=== PATIENT | male | born 1970 | race Caucasian/White ===

== ENCOUNTER 2023-07-30 11:17 | Emergency (ER) | payer OTHER, SELFPAY ==
[2023-07-30 11:23] VITALS: BP 141/82; PULSE 77; RESP 18; TEMP 36.3; O2SAT 97; BMI 35.4
--- NOTE | 2023-07-30 13:52 | ED.ABDPAIN ---
HPI - Abdominal Pain General Time Seen by Provider: 13:53 Date Seen: 07/30/23 Chief Complaint: Abdominal Pain Stated Complaint: L side pain Time Seen by Provider: 07/30/23 13:29 Source: patient and RN notes reviewed Mode of arrival: ambulatory Limitations: no limitations History of Present Illness HPI narrative: Patient is a 52-year-old male coming in with left lower quadrant abdominal pain that started on Thursday and has gotten progressively worse since then. He has not had any fevers or chills, no night sweats. He denies any nausea or vomiting, no change in appetite. He has had absolutely no change in stools, no urinary symptoms. He is not aware of anybody in the family with a history of kidney stones, himself has not had kidney stones nor any history of diverticulitis. Related Data Home Medications Medication Instructions Recorded Confirmed No Known Home Medications 07/30/23 07/30/23 Allergies Allergy/AdvReac Type Severity Reaction Status Date / Time No Known Drug Allergies Allergy Verified 07/30/23 14:48 Review of Systems Status of ROS Reports: 6 or more systems reviewed and unremarkable except as noted in History and below PFSH PFS Social History Smoking Status: Never smoker Do you use any of these nicotine containing products: None Second hand tobacco smoke exposure: No How often do you have a drink containing alcohol: never How often do you have six or more drinks on one occasion: Never AUDIT-C Alcohol total score: 0 Non-prescribed substance use: denies use service: No Exam Const: Vital Signs, click to edit/add: Vital Signs - 24 hr 07/30/23 11:23 Temperature 97.4 F L Pulse Rate [Pulse Oximeter] 77 Respiratory Rate 18 Blood Pressure [Ri ght Upper Arm] 141/82 H Pulse Oximetry 97 Oxygen Delivery Me thod Room Air This 52-year-old male is seen in exam room for coming sitting up in the chair, looks alert, interactive, no apparent distress. Pupils equal round reactive, sclera clear. Symmetrical facial function. Speech is normal. Neck is supple, no cervical adenopathy, no thyromegaly masses or nodules. Lungs are clear, good air entry, no wheezing or crackles, no tachypnea. CV regular rate and rhythm, no murmur, normal S1-S2, no S3 or S4. Abdomen is mildly obese but soft, does not seem distended, has mid to left lower quadrant tenderness without any rebound or guarding, do not appreciate any masses at this point. Was ambulatory into the ED of his own accord. Documenting provider has reviewed patient's vital signs: yes Course Course ED Course: Reviewed with patient that I do think we need to proceed with CT imaging. My initial thought is that this certainly could be diverticulitis. Urinary pathology is also a possibility. Other intra-abdominal issues certainly will be looked at with the labs and the CT imaging. He currently denies any need for any nausea medicine or any pain management. He will let us know if anything is worsening. We will collect a full complement of labs and he will have a CT of his abdomen pelvis with IV contrast. Reevaluation(s) Time of Reevaluation #1: 14:22 Reevaluation #1: Patient had a significant vasovagal episode with IV placement, I did see him after this happened, he was alert, talkative did look paler than when I had seen him earlier. Did have some nausea. IV did get placed, we will give him 500 mL normal saline, 4 mg IV Zofran. Nursing staff is in the process of taking his vital signs. Will continue to monitor him a bit closer at this time but presume that this was vasovagal as symptoms happened with his IV start. 2:42pm checked back on patient. He is alert interactive, no concerns. States he really had no idea that he was going to pass out. Recollects everything before in after. This happened in context of his IV being placed. He will be going to get his CT done now. Awaiting lab results. Time of Reevaluation #2: 16:11 Reevaluation #2: Have reviewed with patient that his CT showing epiploic appendagitis. Did review this condition. Thankfully, does not require surgery, no antibiotics, should resolve on its own with just conservative management and treatment with [id number]. We discussed that NSAIDs may be more beneficial. Vital Signs Vital signs: Initial Vital Signs Temperature 97.4 F L 07/30/23 11:23 Temperature Source Temporal Artery Scan 07/30/23 11:23 Pulse Rate 77 07/30/23 11:23 Respiratory Rate 18 07/30/23 11:23 Blood Pressure 141/82 H 07/30/23 11:23 Blood Pressure Mean 101 07/30/23 11:23 Blood Pressure Position Sitting 07/30/23 11:23 Pulse Oximetry 97 07/30/23 11:23 Oxygen Delivery Method Room Air 07/30/23 11:23 Vital Signs Temperature 97.4 F L 07/30/23 11:23 Pulse Rate 77 07/30/23 11:23 Respiratory Rate 18 07/30/23 11:23 Blood Pressure 141/82 H 07/30/23 11:23 Pulse Oximetry 97 07/30/23 11:23 Oxygen Delivery Method Room Air 07/30/23 11:23 Temperature 97.4 F L 07/30/23 11:23 Pulse Rate 77 07/30/23 11:23 Respiratory Rate 18 07/30/23 11:23 Blood Pressure 141/82 H 07/30/23 11:23 Pulse Oximetry 97 07/30/23 11:23 Oxygen Delivery Method Room Air 07/30/23 11:23 Medications Administered Medications: Discontinued Medications Generic Name Dose Route Start Last Admin Trade Name Freq PRN Reason Stop Dose Admin Sodium Chloride 500 mls @ 500 mls/hr 07/30/23 14:22 07/30/23 15:34 0.9 % Sodium Chloride 500 Ml IV 07/30/23 15:21 Infused .Q1H ONE Infusion Ondansetron HCl 4 mg 07/30/23 14:22 07/30/23 14:24 Ondansetron 2 Mg/Ml Inj IVP 07/30/23 14:23 4 mg ONCE ONE Administration MDM - Abdominal Pain Lab Data Attestation: I reviewed the patient's lab results. Labs: Lab Results 07/30/23 Range/Units 14:27 WBC 7.83 (4.50-11.00) K/uL RBC 5.31 (4.30-5.90) m/uL Hgb 16.7 (13.5-17.5) gm/dL Hct 48.5 (37.0-53.0) % MCV 91 (80-100) fL MCH 32 (26-34) pg MCHC 34 (32-36) gm/dL RDW Coeff of Freida 12.2 (11.5-15.5) % Plt Count 193 (140-440) K/uL Neut % (Auto) 65.3 (42.0-72.0) % Lymph % (Auto) 24.1 (20-44) % Dodge % (Auto) 7.0 (0.0-11.0) % Eos % (Auto) 2.8 (0.0-7.0) % Baso % (Auto) 0.5 (0.0-3.0) % Neut # (Auto) 5.11 (1.7-7.0) K/uL Lymph # (Auto) 1.89 (0.90-2.90) K/uL Dodge # (Auto) 0.50 (0.00-0.90) K/UL Eos # (Auto) 0.22 (0.00-0.50) K/uL Baso # (Auto) 0.04 (0.00-0.30) K/uL Abs Immat Gran (auto) 0.02 (0.00-0.30) K/uL Imm/Tot Granulo (auto) 0.3 % Sodium 138 (135-149) mmol/L Potassium 4.2 (3.6-5.1) mmol/L Chloride 107 (96-114) mmol/L Carbon Dioxide 22 (20-32) mmol/L Anion Gap 9 (7-15) mEq/L BUN 21 (7-30) mg/dL Creatinine 0.9 (0.5-1.5) mg/dL Estimated Creat Clear 99.94 Estimated GFR 101 ml/min Glucose 90 (60-115) mg/dL Lactate 0.9 (0.5-1.9) mmol/L Calcium 9.1 (8.4-10.6) mg/dL Total Bilirubin 0.7 (0.1-1.5) mg/dL AST 34 (12-35) U/L ALT 45 (4-50) U/L Alkaline Phosphatase 75 (40-150) U/L C-Reactive Protein 0.7 (0.5-1.0) mg/dL Total Protein 8.1 (6.0-8.3) g/dL Albumin 4.9 (3.3-5.0) g/dL Imaging Data CT scan - abdomen: Attestation: I have reviewed the pertinent imaging results. Radiologist's impression: Patient: [facility] Facility:?[facility] Patient ID:?[id number] Site Patient ID:?[id number]. Site :?[id number] Study:?CT Abdomen/Pelvis w/ 124cc [id number] 2:54:15 PM Ordering Physician:Brian Rodriguez Final Report: INDICATION: Left lower quadrant abdominal pain. TECHNIQUE: CT abdomen and pelvis acquired without and with 124 cc Isovue 370 IV contrast. COMPARISON: None. FINDINGS: There is acute inflammation of epiploic appendage adjacent to the proximal sigmoid colon seen for example on series 2, image 118. GI tract otherwise unremarkable. The liver is normal in size, shape and attenuation. Unremarkable gallbladder. No biliary dilatation. The spleen, adrenal glands and pancreas are within normal limits. The kidneys are unremarkable. Pelvic organs are unremarkable. No lymphadenopathy evident. No free air or significant free fluid. The lung bases are clear. IMPRESSION: Acute epiploic appendagitis adjacent to the proximal sigmoid colon would explain the patient`s left lower quadrant pain. GI tract and remainder of the exam otherwise unremarkable. Please note that all CT scans at this facility use dose modulation, iterative reconstruction, and/or weight-based dosing when appropriate to reduce radiation dose to as low as reasonably achievable. Dictated by Yunier Roy MD @ 07/30/2023 3:24:44 PM (Electronic Signature) Critical Care Time Critical Care Time Critical Care Time: No Discharge Plan Discharge Clinical Impression: Epiploic appendagitis Patient Disposition: Home, Self-Care Condition: Stable Instructions: Epiploic Appendagitis (ED) Additional Instructions: Recommend ibuprofen, follow bottle directions baseline for pain management. Can supplement with Tylenol per bottle directions if you need additional pain control. This should be a self-limited condition. If you are having increasing abdominal pain, fever or vomiting with it, do recommend re-evaluation. Otherwise, you can proceed with activity and diet as tolerated. Activity Level: Activity as Tolerated Prescriptions: No Action No Known Home Medications Follow Up/Referrals: Provider,Not a Local [Primary Care Provider] - Stand Alone Forms: [employer] Info Instructions
--- NOTE | 2023-07-30 13:59 | CRLHL7_ITS ---
For Patients: As a result of the Century Cures Act, medical imaging exams and procedure reports are released immediately into your electronic medical record. You may view this report before your referring provider. If you have questions, please contact your health care provider. INDICATION: Left lower quadrant abdominal pain. TECHNIQUE: CT abdomen and pelvis acquired without and with 124 cc Isovue 370 IV contrast. COMPARISON: None. FINDINGS: There is acute inflammation of epiploic appendage adjacent to the proximal sigmoid colon seen for example on series 2, image 118. GI tract otherwise unremarkable. The liver is normal in size, shape and attenuation. Unremarkable gallbladder. No biliary dilatation. The spleen, adrenal glands and pancreas are within normal limits. The kidneys are unremarkable. Pelvic organs are unremarkable. No lymphadenopathy evident. No free air or significant free fluid. The lung bases are clear. IMPRESSION: Acute epiploic appendagitis adjacent to the proximal sigmoid colon would explain the patient`s left lower quadrant pain. GI tract and remainder of the exam otherwise unremarkable. Please note that all CT scans at this facility use dose modulation, iterative reconstruction, and/or weight-based dosing when appropriate to reduce radiation dose to as low as reasonably achievable. Dictated by Yunier oRy MD @ 07/30/2023 3:24:44 PM (Electronically Signed)
[2023-07-30] MEDS: ONDANSETRON 2 MG/ML inj 4 MG IVP (14:24)
[2023-07-30] MEDS: 0.9 % SODIUM CHLORIDE 500 ML 500 ML IV (14:24)
[2023-07-30 14:39] LABS: Basophils Absolute Auto 0.04 K/uL (0.00-0.30); Basophils Percent Auto 0.5 % (0.0-3.0); Eosinophils Absolute Auto 0.22 K/uL (0.00-0.50); Eosinophils Percent Auto 2.8 % (0.0-7.0); Hematocrit 48.5 % (37.0-53.0); Hemoglobin* 16.7 gm/dL (13.5-17.5); Immature Granulocytes Abs Auto 0.02 K/uL (0.00-0.30); Immature Granulocytes Pct Auto 0.3 %; Lymphocytes Absolute Auto 1.89 K/uL (0.90-2.90); Lymphocytes Percent Auto 24.1 % (20-44); Mean Corpuscular HGB Conc 34 gm/dL (32-36); Mean Corpuscular Hemoglobin 32 pg (26-34); Mean Corpuscular Volume 91 fL (80-100); Neutrophils Absolute Auto 5.11 K/uL (1.7-7.0); Neutrophils Percent Auto 65.3 % (42.0-72.0); Platelet Count* 193 K/uL (140-440); RDW Coefficient of Variation % 12.2 % (11.5-15.5); Red Blood Count 5.31 m/uL (4.30-5.90); White Blood Count* 7.83 K/uL (4.50-11.00)
[2023-07-30 14:40] LABS: Lactate* 0.9 mmol/L (0.5-1.9)
[2023-07-30 14:43] LABS: Slide Review Reflex No
--- NOTE | 2023-07-30 14:45 | ED.NURSE ---
This ghost writer was placing IV in patient's right AC when patient had sudden onset of diaphoresis and unconsciousness. Staff alert button hit for assistance. Pt began to gag while still unconsciousness. Additional staff assisted with getting patient laid back in exam room chair and notifying provider. Dr. Pineda entered room and assessed pt. Orders for IV fluids and IV zofran placed. After approximately 90 seconds, pt was awake and answering questions. He did not recall fainting. VS stable. Medications given as ordered. Pt awake and alert upon exit of room.
[2023-07-30 15:28] LABS: Albumin* 4.9 g/dL (3.3-5.0); Chloride* 107 mmol/L (96-114); Sodium* 138 mmol/L (135-149)
[2023-07-30 15:29] LABS: Potassium* 4.2 mmol/L (3.6-5.1)
[2023-07-30 15:31] LABS: Alanine Aminotransferase* 45 U/L (4-50); Alkaline Phosphatase* 75 U/L (40-150); Anion Gap 9 mEq/L (7-15); Aspartate Amino Transferase* 34 U/L (12-35); Bilirubin Total* 0.7 mg/dL (0.1-1.5); Blood Urea Nitrogen* 21 mg/dL (7-30); Carbon Dioxide* 22 mmol/L (20-32); Creatinine* 0.9 mg/dL (0.5-1.5); Est. Creatinine Clearance* 99.94; Estimated Glomerular Filt Rate 101 ml/min; Glucose* 90 mg/dL (60-115); Total Protein* 8.1 g/dL (6.0-8.3)
[2023-07-30 15:32] LABS: Calcium* 9.1 mg/dL (8.4-10.6)
[2023-07-30 15:34] LABS: C Reactive Protein* 0.7 mg/dL (0.5-1.0)
[2023-07-30 16:01] LABS: Appearance Urine Clear (Clear); Bilirubin Urine Negative (Negative); Blood Urine Trace-intact (Negative); Color Urine Yellow (Yellow); Glucose Urine Negative (Negative); Ketones Urine Negative (Negative); Leukocyte Esterase Urine Negative (Negative); Nitrite Urine Negative (Negative); Protein Urine Negative (Negative); Urobilinogen Urine 0.2 (0.2-1.0)
[2023-07-30 16:16] LABS: RBC Urine 0-2 (0-2); Squamous Epithelial Cell Urine Few (None-Few); WBC Urine 0-2 (0-5)
== END 2023-07-30 16:22 | disposition home or self-care (01) ==
PROVIDERS: Emergency Provider Family Medicine
DX: K63.89 Other specified diseases of intestine (principal)
CPT/HCPCS: 36415; 74177; 80053; 81001; 83605; 85025; 86140; 95992; 96361; 96374; 99284; 99285; J2405; J7120; Q9967